=== PATIENT | male | born 1990 | race Caucasian/White ===

== ENCOUNTER 2020-11-30 07:08 | Outpatient (REF) | payer OTHER, SELFPAY | END 2020-11-30 07:09 | disposition home or self-care (01) | LOC: HO.WFDLDS 07:08 | PROVIDERS: PCP Nurse Practitioner Family; Visit Provider Internal Medicine | DX: Z20.828 Contact with and (suspected) exposure to other viral communicable diseases (principal) | CPT/HCPCS: 36415; C9803; U0003 ==

== ENCOUNTER 2020-12-07 07:11 | Outpatient (REF) | payer OTHER, SELFPAY | END 2020-12-07 07:12 | disposition home or self-care (01) | LOC: HO.WFDLDS 07:11 | PROVIDERS: Visit Provider Internal Medicine | DX: Z20.822 Contact with and (suspected) exposure to COVID-19 (principal) | CPT/HCPCS: 36415; C9803; U0003 ==